=== PATIENT | female | born 1975 | race Caucasian/White ===

== ENCOUNTER → 2021-12-25 | Emergency (ER) | payer BC, OTHER ==
[~2021-12-25] VITALS: Ht 162.6 cm; Wt 62.6 kg
--- NOTE | 2021-12-25 23:20 | NUR ---
BIBS FOR C/O PALPITATION, AND LIGHTHEADEDNESS S/P COVID 19 IN OCTOBER. "I FEEL LIKE MY HEART IS SQUEEZING". PT A/OX4. TOLERATING R/A AT 100%. CONNECTED PT TO POX AND MONITOR
--- NOTE | 2021-12-25 23:23 | NUR ---
SKILL TRAINING PROGRAM COORDINATOR AT PT'S BEDSIDE
--- NOTE | 2021-12-25 23:26 | NUR ---
EMT @ BEDSIDE FOR EKG
[2021-12-25 23:35] LABS: BASOPHILS % (AUTO) 0.6 % (0.0-2.0); EOSINOPHILS % (AUTO) 0.3 % (0.0-6.0); HEMATOCRIT 39 % (33-45); HEMOGLOBIN 13.4 g/dL (11.5-14.8); LYMPHOCYTES # (AUTO) 1.8 K/uL (0.8-4.8); MEAN CORPUSCULAR HGB CONC 34 g/dl (31.0-36.0); MEAN CORPUSCULAR VOLUME 92 fL (82-100); MONOCYTES # (AUTO) 0.6 K/uL (0.1-1.30); MONOCYTES % (AUTO) 7.9 % (2.0-12.0); NEUTROPHILS % (AUTO) 67.2 % (43.0-81.0); PLATELET COUNT (AUTO) 356 K/uL (150-450); RED BLOOD CELL COUNT(AUTO) 4.23 MIL/uL (4.0-5.2); WHITE BLOOD COUNT (AUTO) 7.4 K/uL (4.3-11.0)
[2021-12-25 23:44] LABS: CALCIUM, SERUM 8.9 mg/dL (8.5-10.1); CARBON DIOXIDE 27 mmol/L (21-32); CHLORIDE 104 mmol/L (98-107); CREATININE 0.8 mg/dL (0.6-1.3); GLUCOSE 104 mg/dL (74-106); POTASSIUM 3.4 mmol/L (3.5-5.1); SODIUM SERUM 138 mmol/L (136-145); UREA NITROGEN, BLOOD 7 mg/dL (7-18)
[2021-12-25 23:51] LABS: D-DIMER 0.33 mg/L(FEU (0.17-0.50)
[2021-12-26 00:01] LABS: ALANINE AMINOTRANSFERASE 14 U/L (12-78); ALBUMIN 3.8 g/dL (3.4-5.0); ALKALINE PHOSPHATASE 59 U/L (46-116); ASPARTATE AMINOTRANSFERASE 15 U/L (15-37); BILIRUBIN,DIRECT 0.1 mg/dL (0.0-0.2); BILIRUBIN,TOTAL 0.3 mg/dL (0.2-1.0); TOTAL PROTEIN, SERUM 7.3 g/dL (6.4-8.2)
--- NOTE | 2021-12-26 00:49 | NUR ---
Patient discharged to home in stable condition. Written and verbal after care instructions given. Patient verbalizes understanding of instruction.
[2021-12-26 00:54] VITALS: BP 141/81
--- NOTE | 2021-12-26 00:54 | NUR ---
IV removed. Catheter intact and site benign. Pressure and 4x4 applied to site. No bleeding noted.Patient discharged to home in stable condition. Written and verbal after care instructions given. Patient verbalizes understanding of instruction.
== END | disposition home or self-care (01) ==
LOC: ER 22:14
DX: R00.2 Palpitations (principal); U09.9 Post COVID-19 condition, unspecified; Z60.2 Problems related to living alone
CPT/HCPCS: 36415; 71045-TC; 80048-TC; 80076-TC; 84484-TC; 85025-TC; 85378-TC; 85730-TC